=== PATIENT | female | born 1995 | race Caucasian/White ===

== ENCOUNTER 2018-07-02 11:28 | Day surgery (SDC) | payer OTHER ==
[2018-07-02] MEDS ORDERED: LIDOCAINE 2% (SDV) 5 ML INJ (13:11)
[2018-07-02] MEDS ORDERED: PROPOFOL 40 ML (13:11)
[2018-07-02] MEDS ORDERED: ONDANSETRON 4 MG INJ IV (13:30)
[2018-07-02] MEDS ORDERED: FENTAnyl 50 MCG/ML VIAL IV (13:30)
[2018-07-02] MEDS ORDERED: METOCLOPRAMIDE 10 MG INJ IV (13:30)
== END 2018-07-02 14:08 | disposition home or self-care (01) ==
LOC: GIL 11:28
DX: K29.30 Chronic superficial gastritis without bleeding (principal)
CPT/HCPCS: 43239; 84703; 88305; 88312